=== PATIENT | male | born 1980 | race Caucasian/White ===

== ENCOUNTER 2018-10-25 06:57 | Observation (INO) | payer OTHER ==
[2018-10-25] MEDS ORDERED: Sodium Chloride 0.9% 1,000 ML IV STA ×2 (07:56)
--- NOTE | 2018-10-25 08:10 | ED PDOC ---
Arrival/HPI - General Chief Complaint: GI Problem Time Seen by Provider: 10/25/18 07:40 Historian: Patient - History of Present Illness Narrative History of Present Illness (Text): 10/25/18 08:03 38 year old male, with past medical history of diabetes and hypertension, presents to the Emergency department for evaluation of mild headache, dizziness, vomiting, and diarrhea since 2 days. Patient believes symptoms are secondary to his elevated blood sugar. Patient reports visiting his PMD 2 days ago for elevated blood sugar and was prescribed medication for diabetes. As per patient, headache resolved after taking the medication but returned last night. Patient denies any other associated somatic complaints. Patient denies any fever, chills, abdominal pain, chest pain, shortness of breath, vision changes, focal weakness or any other complaints. Time/Duration: < week Symptom Onset: Gradual Symptom Course: Unchanged Activities at Onset: Light Context: Home Past Medical History - Provider Review Nursing Documentation Reviewed: Yes - Cardiac Hx Cardiac Disorders: Yes Hx Hypertension: Yes - Pulmonary Hx Respiratory Disorders: No - Neurological Hx Neurological Disorder: No - HEENT Hx HEENT Disorder: No - Renal Hx Renal Disorder: No - Endocrine/Metabolic Hx Endocrine Disorders: Yes Hx Diabetes Mellitus Type 2: Yes - Hematological/Oncological Hx Blood Disorders: No - Integumentary Hx Dermatological Disorder: No - Musculoskeletal/Rheumatological Hx Musculoskeletal Disorders: No - Gastrointestinal Hx Gastrointestinal Disorders: No - Genitourinary/Gynecological Hx Genitourinary Disorders: No - Psychiatric Hx Psychophysiologic Disorder: No Hx Substance Use: No - Surgical History Hx Appendectomy: Yes Family/Social History - Physician Review Nursing Documentation Reviewed: Yes Family/Social History: Unknown Family HX Smoking Status: Heavy Smoker > 10 Cigarettes Daily Hx Alcohol Use: Yes Frequency of alcohol use: Socially Hx Substance Use: No Allergies/Home Meds Allergies/Adverse Reactions: Allergies No Known Allergies Allergy (Verified 10/25/18 07:32) Home Medications: Home Meds Medication Instructions Recorded Confirmed Unobtainable 10/25/18 10/25/18 Review of Systems - Physician Review All systems were reviewed & negative as marked: Yes - Review of Systems Constitutional: absent: Fevers Eyes: absent: Vision Changes Respiratory: absent: SOB, Cough Cardiovascular: absent: Chest Pain, GUERRA Gastrointestinal: Diarrhea, Nausea, Vomiting. absent: Abdominal Pain Genitourinary Male: absent: Dysuria, Urinary Output Changes Musculoskeletal: absent: Back Pain, Neck Pain Skin: absent: Rash Neurological: Headache, Dizziness. absent: Focal Weakness, Speech Changes, Facial Droop Endocrine: absent: Diaphoresis Psychiatric: absent: Anxiety Physical Exam - Physical Exam Narrative Physical Exam (Text): 10/25/18 08:12 Gen: VS reviewed, alert, well developed, well nourished, nontoxic, mild distress. ENT: normal pharynx. Dry mucous membranes. Eye: EOMI, PERRL. Neck: no JVD, supple, no adenopathy. CV: tachycardia, regular rhythm, no rubs, no murmur, no gallops, S1, S2, pulses equal and strong. Pulm: no distress, clear to auscultation, no wheeze, no rhonchi, breath sounds equal, no rales. Abd: soft, mild right sided tenderness, no guarding, no rebound, no rigidity, normal bowel sounds. Ext: no edema. Skin: good color, no rash, no cyanosis. Psych: responds appropriately to questions, normal affect. Neuro: oriented x 3, CN2-12 intact grossly, motor intact, sensation intact. Vital Signs Reviewed: Yes Vital Signs Temp Pulse Resp BP Pulse Ox 10/25/18 07:32 98.3 F 106 H 18 152/79 H 96 Temperature: Afebrile Blood Pressure: Normal Pulse: Tachycardic Respiratory Rate: Normal Appearance: Positive for: Well-Appearing, Non-Toxic, Comfortable Pain Distress: Mild Mental Status: Positive for: Alert and Oriented X 3 Finger Stick Blood Glucose: 262 Medical Decision Making ED Course and Treatment: 10/25/18 07:55 Impression: 38 year old male presents to the ED for evaluation of headache, dizziness, nausea, vomiting and diarrhea. Plan: -- EKG -- Labs -- IV Fluids -- Zofran -- Urinalysis -- Reassess and disposition Prior Visits: Notes and results from previous visits were reviewed. Progress Notes: 10/25/18 11:[address] fried, patient to be admitted for dehydration presumably from uncontrolled glycemia and acute vomit/diarrhea. there is no metabolic disturbance to suggest DKA. EKG appears consistent with ischemia and being that the patient is hemoconcentrated (elevated Hb) with risk factors for heart disease will warrant further cardiac evaluation. consult dr. dean. - RAD Interpretation Narrative RAD Interpretations (Text): 10/25/18 09:45 CT of head reviewed by radiologist, shows: FINDINGS: HEMORRHAGE: No intracranial hemorrhage. BRAIN: No mass effect or edema. No atrophy or chronic microvascular ischemic changes. VENTRICLES: Unremarkable. No hydrocephalus. CALVARIUM: Unremarkable. PARANASAL SINUSES: Unremarkable as visualized. No significant inflammatory changes. MASTOID AIR CELLS: Unremarkable as visualized. No inflammatory changes. OTHER FINDINGS: None. IMPRESSION: Normal CT of the Head. No intracranial mass, hemorrhage or evidence of acute infarct. Gauger Chief: Radiologist - EKG Interpretation EKG Interpretation (Text): 10/25/18 08:44 archival studies professor read: Sinus tachycardia at 115 bpm. 10/25/18 07:36 Sinus tachycardia @108bpm, nml QRS, nml axis, non-specific lateral flipped t waves. Interpreted by ED Physician: Yes Type: 12 lead EKG - Medication Orders Current Medication Orders: Sodium Chloride (Sodium Chloride 0.9%) 1,000 mls @ 999 mls/hr IV .Q1H1M STA Stop: 10/25/18 08:56 Sodium Chloride (Sodium Chloride 0.9%) 1,000 mls @ 999 mls/hr IV .Q1H1M STA Stop: 10/25/18 08:56 Discontinued Medications Ondansetron HCl (Zofran Inj) 4 mg IVP STAT STA Stop: 10/25/18 07:57 - Scribe Statement The provider has reviewed the documentation as recorded by the Noéibe Nelia Stiles. All medical record entries made by the Scribe were at my direction and personally dictated by me. I have reviewed the chart and agree that the record accurately reflects my personal performance of the history, physical exam, medical decision making, and the department course for this patient. I have also personally directed, reviewed, and agree with the discharge instructions and disposition. Disposition/Present on Arrival - Present on Arrival Any Indicators Present on Arrival: No History of DVT/PE: No History of Uncontrolled Diabetes: No Urinary Catheter: No History of Decub. Ulcer: No History Surgical Site Infection Following: None - Disposition Have Diagnosis and Disposition been Completed?: Yes Diagnosis: Abnormal EKG, Dehydration Disposition Time: 11:12 Patient Plan: Admission, Observation Patient Problems: Current Active Problems Problem Status Onset Abnormal EKG Acute Dehydration Acute Condition: STABLE
[2018-10-25 08:52] LABS: BASO # 0.02 K/mm3 (0.0-2.0); BASO % 0.2 % (0.0-3.0); EOS % 0.1 % (1.5-5.0); LYMPH % 15.8 % (22.0-35.0); MEAN CELL VOLUME 85.7 fl (80.0-105.0); MEAN CORPUSCULAR HEMOGLOBIN 30.3 pg (25.0-35.0); MEAN CORPUSCULAR HGB CONC 35.4 g/dl (31.0-37.0); MEAN PLATELET VOLUME 9.7 fl (7.0-11.0); MONO # 0.5 (0.1-0.6); MONO % 3.9 % (1.0-6.0); RBC 6.1 10^6/uL (3.5-6.1); RED CELL DISTRIBUTION WIDTH 13.8 % (11.5-14.5); WHITE BLOOD COUNT 12.9 10^3/uL (4.5-11.0)
[2018-10-25 08:55] LABS: ALB/GLOB RATIO 1.1 (1.1-1.8); ALBUMIN 4.3 g/dL (3.0-4.8); ALT/SGPT 41 U/L (7-56); AST/SGOT 44 U/L (17-59); BLOOD UREA NITROGEN 17 mg/dL (7-21); CALCIUM 9.9 mg/dL (8.4-10.5); GFR NON-AFRICAN AMERICAN > 60; LIPASE 111 U/L (23-300)
[2018-10-25 09:01] LABS: HEMOGLOBIN 18.5 g/dL (14.0-18.0)
[2018-10-25 09:12] LABS: URINE BILIRUBIN NEGATIVE (NEGATIVE); URINE BLOOD NEGATIVE (NEGATIVE); URINE GLUCOSE (UA) >=1000 mg/dL (NEGATIVE); URINE LEUKOCYTE ESTERASE NEGATIVE Leu/uL (NEGATIVE); URINE PROTEIN 100 mg/dL (<30 mg/dL); URINE UROBILINOGEN 0.2 E.U./dL (<1 E.U./dL)
[2018-10-25 09:13] LABS: URINE APPEARANCE CLEAR (CLEAR); URINE COLOR YELLOW (YELLOW)
--- NOTE | 2018-10-25 09:15 | CT ---
Date of service: 10/25/2018 PROCEDURE: CT HEAD WITHOUT CONTRAST. HISTORY: headache COMPARISON: None available. TECHNIQUE: Axial computed tomography images were obtained through the head/brain without intravenous contrast. Radiation dose: Total exam DLP = 786.98 mGy-cm. This CT exam was performed using one or more of the following dose reduction techniques: Automated exposure control, adjustment of the mA and/or kV according to patient size, and/or use of iterative reconstruction technique. FINDINGS: HEMORRHAGE: No intracranial hemorrhage. BRAIN: No mass effect or edema. No atrophy or chronic microvascular ischemic changes. VENTRICLES: Unremarkable. No hydrocephalus. CALVARIUM: Unremarkable. PARANASAL SINUSES: Unremarkable as visualized. No significant inflammatory changes. MASTOID AIR CELLS: Unremarkable as visualized. No inflammatory changes. OTHER FINDINGS: None. IMPRESSION: Normal CT of the Head. No intracranial mass, hemorrhage or evidence of acute infarct.
[2018-10-25 09:49] LABS: URINE BACTERIA FEW /hpf; URINE RBC 0 - 2 /hpf (0-2); URINE WBC 0 - 2 /hpf (0-6)
[2018-10-25] MEDS ORDERED: Potassium Chloride 10 mEq ER Tab PO STA (12:08)
[2018-10-25] MEDS: Sodium Chloride 0.9% 1,000 ML IV SCH (12:16)
--- NOTE | 2018-10-25 12:35 | CP.PCM.CON ---
History of Present Illness - History of Present Illness History of Present Illness: Awake, alert, complaining of left side headache Reason for consultation:Cardiac evaluation of abnormal EKG and tachycardia Brief history of present illness: A 38 year old obese male, who came in to the ER due to mild headache, dizziness, vomiting, and diarrhea x 2 days. History of uncontrolled diabetes and hypertension. No cardiac work up. Consult was called due to tachycardia and abnormal EKG. Seen and examined by me and Dr. Albright Review of Systems - Review of Systems All systems: reviewed and no additional remarkable complaints except Review of Systems: as per HPI Past Patient History - Past Social History Smoking Status: Heavy Smoker > 10 Cigarettes Daily - CARDIAC Hx Cardiac Disorders: Yes Hx Hypertension: Yes - PULMONARY Hx Respiratory Disorders: No - NEUROLOGICAL Hx Neurological Disorder: No - HEENT Hx HEENT Problems: No - RENAL Hx Chronic Kidney Disease: No - ENDOCRINE/METABOLIC Hx Endocrine Disorders: Yes Hx Diabetes Mellitus Type 2: Yes - HEMATOLOGICAL/ONCOLOGICAL Hx Blood Disorders: No - INTEGUMENTARY Hx Dermatological Problems: No - MUSCULOSKELETAL/RHEUMATOLOGICAL Hx Musculoskeletal Disorders: No - GASTROINTESTINAL Hx Gastrointestinal Disorders: No - GENITOURINARY/GYNECOLOGICAL Hx Genitourinary Disorders: No - PSYCHIATRIC Hx Psychophysiologic Disorder: No Hx Substance Use: No - SURGICAL HISTORY Hx Appendectomy: Yes Meds Allergies/Adverse Reactions: Allergies Allergy/AdvReac Type Severity Reaction Status Date / Time No Known Allergies Allergy Verified 10/25/18 07:32 - Medications Medications: Current Medications Aspirin (Aspirin Chewable) 81 mg PO DAILY [facility] Atorvastatin Calcium (Lipitor) 40 mg PO DIN [facility] Hydrochlorothiazide (Hydrodiuril) 25 mg PO DAILY [facility] Sodium Chloride (Sodium Chloride 0.9%) 1,000 mls @ 100 mls/hr IV .Q10H [facility] Last Admin: 10/25/18 12:16 Dose: 100 mls/hr Insulin Human Regular (Humulin R Med) 0 units SC ACHS [facility]; Protocol Lisinopril (Zestril) 20 mg PO DAILY [facility] Metformin HCl (Glucophage) 850 mg PO BID [facility] Ondansetron HCl (Zofran Inj) 4 mg IVP Q4H PRN PRN Reason: Nausea/Vomiting Physical Exam - Constitutional Appears: Non-toxic, No Acute Distress - Head Exam Head Exam: NORMAL INSPECTION, NORMOCEPHALIC Additional comments: headache - Eye Exam Eye Exam: Normal appearance Pupil Exam: NORMAL ACCOMODATION - ENT Exam ENT Exam: Mucous Membranes Dry - Neck Exam Neck exam: Positive for: Normal Inspection - Respiratory Exam Respiratory Exam: Clear to Auscultation Bilateral, NORMAL BREATHING PATTERN - Cardiovascular Exam Cardiovascular Exam: Tachycardia, +S1, +S2 - GI/Abdominal Exam GI & Abdominal Exam: Normal Bowel Sounds, Soft - Neurological Exam Neurological exam: Alert, Oriented x3 - Psychiatric Exam Psychiatric exam: Normal Affect, Normal Mood - Skin Skin Exam: Dry, Normal Color, Warm Results - Vital Signs Recent Vital Signs: Last Vital Signs Temp 98.3 F 10/25/18 07:32 Pulse 107 H 10/25/18 10:01 Resp 17 10/25/18 10:01 BP 125/69 10/25/18 10:01 Pulse Ox 94 L 10/25/18 10:01 - Labs Result Diagrams: 10/25/18 07:30 10/25/18 07:30 Labs: Laboratory Results - last 24 hr 10/25/18 10/25/18 10/25/18 07:30 07:30 08:40 WBC 12.9 H RBC 6.10 Hgb 18.5 H* Hct 52.3 H MCV 85.7 MCH 30.3 MCHC 35.4 RDW 13.8 Plt Count 265 MPV 9.7 Neut % (Auto) 80.0 H Lymph % (Auto) 15.8 L [place] % (Auto) 3.9 Eos % (Auto) 0.1 L Baso % (Auto) 0.2 Lymph # (Auto) 2.0 [place] # (Auto) 0.5 Eos # (Auto) 0.0 Baso # (Auto) 0.02 Absolute Neuts (auto) 10.31 H Sodium 135 Potassium 3.4 L Chloride 96 L Carbon Dioxide 22 Anion Gap 21 H BUN 17 Creatinine 0.6 L Est GFR ( Amer) > 60 Est GFR (Non-Af Amer) > 60 Random Glucose 287 H Calcium 9.9 Magnesium 2.0 Total Bilirubin 1.2 AST 44 ALT 41 Alkaline Phosphatase 93 Troponin I Total Protein 8.1 Albumin 4.3 Globulin 3.8 Albumin/Globulin Ratio 1.1 Lipase 111 Urine Color Yellow Urine Appearance Clear Urine pH 6.0 Ur Specific [place] 1.015 Urine Protein 100 H Urine Glucose (UA) >=1000 Urine Ketones >=80 Urine Blood Negative Urine Nitrate Negative Urine Bilirubin Negative Urine Urobilinogen 0.2 Ur Leukocyte Esterase Negative Urine RBC 0 - 2 Urine WBC 0 - 2 Ur Epithelial Cells None Urine Bacteria Few 10/25/18 09:01 WBC RBC Hgb Hct MCV MCH MCHC RDW Plt Count MPV Neut % (Auto) Lymph % (Auto) [place] % (Auto) Eos % (Auto) Baso % (Auto) Lymph # (Auto) [place] # (Auto) Eos # (Auto) Baso # (Auto) Absolute Neuts (auto) Sodium Potassium Chloride Carbon Dioxide Anion Gap BUN Creatinine Est GFR ( Amer) Est GFR (Non-Af Amer) Random Glucose Calcium Magnesium Total Bilirubin AST ALT Alkaline Phosphatase Troponin I < 0.01 Total Protein Albumin Globulin Albumin/Globulin Ratio Lipase Urine Color Urine Appearance Urine pH Ur Specific [place] Urine Protein Urine Glucose (UA) Urine Ketones Urine Blood Urine Nitrate Urine Bilirubin Urine Urobilinogen Ur Leukocyte Esterase Urine RBC Urine WBC Ur Epithelial Cells Urine Bacteria Assessment & Plan - Assessment and Plan (Free Text) Assessment: A 38 year old obese male, who came in to the ER due to mild headache, dizziness, vomiting, and diarrhea x 2 days. Patient is fasting and attribute headache from elevated blood glucose. Fasting glucose was above 200 when checked at home. History of uncontrolled diabetes, hyperlipidemia and hypertension and current smoker. No cardiac work up. Consult was called due to tachycardia and abnormal EKG. EKG read by Dr. Albright and showed tachycardia possible left atrial enlargement. T inversion leads 1,2,3,4 and V leads. Q wave in III and AVF non significant. Patient denies chest pain. CT of head done- unremarkable, no hemorrhage. Will order echo to evaluate LV function. Out patient Stress test for risk stratification. Headache maybe from dehydration as he is fasting. IV fluids for hydration. Control glucose. No plan for invasive procedure at this time. Orthostatic vital signs. Low dose betablocker. Plan: Denies chest pain, Complaints of head ache left side of head IV fluids for hydration Echo to evaluate LV function On ASA 81 mg daily,Lipitor 40 mg daily,Hydrodiuril 25 mg daily, Lisinopril 20 mg daily Low dose Lopressor 25 mg BID Orthostatic vital signs Continue current treatment Continue current medications Lifestyle modifications Weight reduction TSH, HgbA1C, Lipid panel Further recommendation during hospital course Will follow up Plan and treatment discussed with Dr. Albright Thank you for the opportunity of taking care of Mena Daniels - Date & Time Date: 10/25/18 Time: 12:45
--- NOTE | 2018-10-25 12:43 | CARD ---
APPROVED REPORT Date of service: 10/25/2018 EKG Measurement Heart [id number] NH [id number] [id number] <Conclusion> Sinus tachycardia Possible Left atrial enlargement T inversions in I,2,3,AVF,V4,V5,V6. Q in III can be Normal.Small Q in AVF Non Significant.
[2018-10-25 12:57] VITALS: BMI 31.7
[2018-10-25] MEDS ORDERED: Potassium Chloride 20 mEq ER Tab PO ONE (14:09)
--- NOTE | 2018-10-25 16:49 | CARD ---
APPROVED REPORT Date of service: 10/25/2018 EXAM: Two-dimensional and M-mode echocardiogram with Doppler and color Doppler. INDICATION LVFX 2D DIMENSIONS Left Atrium (2D)4.0 (1.6-4.0cm)IVSd1.0 (0.7-1.1cm) LVDd4.9 (3.9-5.9cm)PWd1.1 (0.7-1.1cm) LVDs3.4 (2.5-4.0cm)FS (%) 31.2 % LVEF (%)58.7 (>50%) M-Mode DIMENSIONS Aortic Root3.50 (2.2-3.7cm)Aortic Cusp Exc.2.30 (1.5-2.0cm) Aortic Valve AoV Peak Nhqvxqzx793.0cm/Elizabeth Peak GR.7mmHg Mitral Valve MV E Uivezvpe43.3cm/sMV A Paroscvi84.4cm/sE/A ratio1.2 TDI Lateral E' Peak V12.20cm/sMedial E' Peak V9.64cm/sE/Lateral E'7.9 E/Medial E'10.0 Pulmonary Valve PV Peak Amlwsohp29.3cm/sPV Peak Grad.3mmHg Tricuspid Valve TR Peak [id number]/sRAP [id number] Peak Gr.13mmHg [id number] LEFT VENTRICLE The left ventricle is normal size. The left ventricular function is normal. The left ventricular ejection fraction is within the normal range.Ej.Fr: 59%. RIGHT VENTRICLE The right ventricle is normal size. The right ventricular systolic function is normal. ATRIA Size Upper Limit of Normal. The right atrium size is normal. AORTIC VALVE The aortic valve is normal in structure. MITRAL VALVE The mitral valve is normal in structure. Mitral regurgitation is trace. TRICUSPID VALVE The tricuspid valve is normal in structure. There is trace tricuspid regurgitation. PERICARDIAL EFFUSION There is no pericardial effusion. <Conclusion> The left ventricle is normal size.LV Systolic Function Normal. LV Ej.Fr: 59%. The right ventricle is normal size. The right ventricular systolic function is normal. Lt. Atrial Size Upper Limit of Normal. The right atrium size is normal. The aortic valve is normal in structure. The mitral valve is normal in structure. Mitral regurgitation is trace. Tricuspid Valve Normal. Trace Tricuspid Regurge. There is no pericardial effusion.
[2018-10-25] MEDS: Insulin Reg-MEDIUM-Coverage SC SCH ×2 (17:33→21:40)
--- NOTE | 2018-10-25 22:17 | HP ---
HISTORY OF PRESENT ILLNESS: The patient is a 38-year-old man with a past medical history of type 2 diabetes mellitus and hypertension who presented for evaluation of a 2 day history of lightheadedness, dizziness, malaise and headache. The patient was seen in his PMD's office approximately 3 weeks ago for a routine physical. At that point in time, blood work demonstrated a hemoglobin A1c of 8.7. The patient initially opted for lifestyle modifications and denied any symptoms of diabetes. Over the next several weeks he reported that he was not compliant with an ADA diet and had been drinking a lot of soda. He subsequently developed polydipsia, polyuria and polyphagia in addition to the aforementioned symptoms. He returned to his PMD's office on 10/24/2018 and was started on Metformin 850 mg p.o. b.i.d. He was again counseled on the need for lifestyle modifications. He reports some improvement in his symptoms since starting Metformin but due to the fact that his symptoms did not fully resolve, he opted for ED evaluation. In the ED he was afebrile and hemodynamically stable, albeit mildly lightheaded. An EKG demonstrated T-wave inversions in the lateral leads and inferior leads and thus he was admitted for further evaluation. PAST MEDICAL HISTORY: As per HPI, also hyperlipidemia and obesity. PAST SURGICAL HISTORY: Appendectomy. ALLERGIES: NKDA. MEDICATIONS: Simvastatin 20 mg p.o. daily, Zestoretic 20/25 mg p.o. daily and Metformin 850 mg p.o. b.i.d. FAMILY HISTORY: Noncontributory. SOCIAL HISTORY: The patient reports an active [id number] smoking history and social alcohol use. He denies illicit drug abuse. REVIEW OF SYSTEMS: A 12-point review of systems is negative except as per HPI. PHYSICAL EXAMINATION: VITAL SIGNS: Temperature 99.1, pulse 112, blood pressure 146/80, respiratory rate 20, and oxygen saturation 96% on room air. GENERAL: Obese man lying in bed, in no apparent distress. HEENT: PERRL. EOMI. No scleral icterus. No conjunctival pallor. NECK: No JVD. No bruits. LUNGS: Clear to auscultation. CARDIOVASCULAR: Tachycardic. Normal S1 and S2. No murmurs. ABDOMEN: Normoactive bowel sounds, soft, nontender, and nondistended. EXTREMITIES: No edema. NEUROLOGIC: Awake, alert, and oriented x 3. No focal motor deficits. LABORATORY DATA: WBC 12.9 with 80% neutrophils, hemoglobin 18.5, hematocrit 52 and platelets 265. Sodium 135, potassium 3.4, chloride 96, bicarb 22, BUN 17, creatinine 0.6 and glucose 287. Troponin < 0.01. IMAGING STUDIES: 1. CT of the head without contrast demonstrated no acute pathology. ASSESSMENT: The patient is a 38-year-old man with a past medical history of hypertension, hyperlipidemia and noninsulin-dependent diabetes mellitus who presented for an evaluation of a 2 day history of polydipsia, polyphagia, polyuria and malaise and who was admitted for cardiac evaluation due to an abnormal EKG. PLAN: 1. Abnormal EKG. The patient remains chest pain free and has a negative initial troponin. Input from Dr. Albright noted and appreciated and an echocardiogram is ordered to assess LV function. Continue with telemetry monitoring. Cycle cardiac enzymes q. 8 hours for 3 sets. 2. Type 2 diabetes mellitus, uncontrolled, with most recent A1c of 8.7. The patient has been again counseled on the need for lifestyle modifications. Continue Metformin 850 mg p.o. b.i.d. and medium-dose insulin sliding scale for coverage. Continue to monitor fingersticks q.a.c. and at bedtime. 3. Hypertension. Continue Lisinopril 20 mg p.o. daily, hydrochlorothiazide 25 mg p.o. daily and Metoprolol 25 mg p.o. b.i.d. 4. Hyperlipidemia. Continue Lipitor 20 mg p.o. daily. 5. Obesity. The patient has been counseled on lifestyle modifications. 6. Prophylaxis. GI prophylaxis not indicated as the patient is eating. DVT prophylaxis not indicated as the patient is ambulatory. CODE STATUS: Full code. Jose A Rodriguez MD MTDD
[2018-10-25 23:47] VITALS: O2SAT 97
[2018-10-26 05:49] VITALS: TEMP 98.5
--- NOTE | 2018-10-26 05:50 | CP.PCM.PN ---
Subjective - Date & Time of Evaluation Date of Evaluation: 10/26/18 Time of Evaluation: 06:00 - Subjective Subjective: Awake, alert, denies headache, Reason for consultation and follow up: Cardiac evaluation of abnormal EKG and tachycardia, History of uncontrolled diabetes and hypertension, hyperlipidemia, current smoker Seen and examined by me and Dr. Albright Objective - Vital Signs/Intake and Output Vital Signs (last 24 hours): Temp Pulse Resp BP Pulse Ox 98.5 F 94 H 98 H 125/78 97 10/26/18 05:48 10/26/18 05:48 10/26/18 05:48 10/25/18 23:38 10/25/18 23:38 - Medications Medications: Current Medications Acetaminophen (Tylenol 325mg Tab) 650 mg PO Q6H PRN PRN Reason: Headache Last Admin: 10/25/18 13:16 Dose: 650 mg Aspirin (Aspirin Chewable) 81 mg PO DAILY [facility] Atorvastatin Calcium (Lipitor) 40 mg PO DIN [facility] Hydrochlorothiazide (Hydrodiuril) 25 mg PO DAILY [facility] Sodium Chloride (Sodium Chloride 0.9%) 1,000 mls @ 100 mls/hr IV .Q10H [facility] Last Admin: 10/25/18 12:16 Dose: 100 mls/hr Insulin Human Regular (Humulin R Med) 0 units SC [facility]; Protocol Last Admin: 10/25/18 21:40 Dose: Not Given Lisinopril (Zestril) 20 mg PO DAILY [facility] Metformin HCl (Glucophage) 850 mg PO BID [facility] Last Admin: 10/25/18 17:33 Dose: 850 mg Metoprolol Tartrate (Lopressor) 25 mg PO BID [facility] Last Admin: 10/25/18 17:33 Dose: 25 mg Ondansetron HCl (Zofran Inj) 4 mg IVP Q4H PRN PRN Reason: Nausea/Vomiting - Labs Labs: 10/25/18 07:30 10/25/18 07:30 - Constitutional Appears: Non-toxic, No Acute Distress - Head Exam Head Exam: NORMAL INSPECTION, NORMOCEPHALIC - Eye Exam Eye Exam: Normal appearance Pupil Exam: NORMAL ACCOMODATION - ENT Exam ENT Exam: Mucous Membranes Moist, Normal Exam - Respiratory Exam Respiratory Exam: Clear to Ausculation Bilateral, NORMAL BREATHING PATTERN - Cardiovascular Exam Cardiovascular Exam: REGULAR RHYTHM, +S1, +S2 - GI/Abdominal Exam GI & Abdominal Exam: Soft, Normal Bowel Sounds - Extremities Exam Extremities Exam: Full ROM, Normal Capillary Refill - Neurological Exam Neurological Exam: Alert, Awake, Oriented x3 - Psychiatric Exam Psychiatric exam: Normal Affect, Normal Mood - Skin Skin Exam: Dry, Normal Color, Warm Assessment and Plan - Assessment and Plan (Free Text) Assessment: A 38 year old obese male, who came in to the ER due to mild headache, dizziness, vomiting, and diarrhea x 2 days. Patient is fasting and attribute headache from elevated blood glucose. Fasting glucose was above 200 when checked at home. History of uncontrolled diabetes, hyperlipidemia and hypertension and current smoker. No cardiac work up. Consult was called due to tachycardia and abnormal EKG. EKG read by Dr. Albright and showed tachycardia possible left atrial enlargement. T inversion leads 1,2,3,4 and V leads. Q wave in III and AVF non significant. Patient denies chest pain. CT of head done- unremarkable, no hemorrhage. Out patient Stress test for risk stratification. Echo done and showed LVEF 59%, left atrial size upper limit of normal, trace mitral and tricuspid regurgitation, RVSP 23mmHg. Head ache resolved. No plan for invasive procedure at this time. Cardiac status stable. Plan: Headache resolved, feels better Denies chest pain, IV fluids for hydration Heart rate and blood pressure controlled Echo done and showed LVEF 59%, left atrial size upper limit of normal, trace mitral and tricuspid regurgitation, RVSP 23mmHg. On ASA 81 mg daily,Lipitor 40 mg daily,Hydrodiuril 25 mg daily, Lisinopril 20 mg daily,Lopressor 25 mg BID Orthostatic vital signs Continue current treatment Continue current medications Lifestyle modifications Weight reduction Will discontinue telemetry Out patient Stress test Will follow up Plan and treatment discussed with Dr. Albright
[2018-10-26 05:56] VITALS: RESP 20
[2018-10-26] MEDS: Sodium Chloride 0.9% 1,000 ML IV SCH (06:19)
[2018-10-26 06:58] LABS: MEAN CELL VOLUME 87.1 fl (80.0-105.0); MEAN CORPUSCULAR HEMOGLOBIN 29.4 pg (25.0-35.0); MEAN CORPUSCULAR HGB CONC 33.7 g/dl (31.0-37.0); MEAN PLATELET VOLUME 9.3 fl (7.0-11.0); RBC 5.11 10^6/uL (3.5-6.1); RED CELL DISTRIBUTION WIDTH 13.7 % (11.5-14.5); WHITE BLOOD COUNT 7.9 10^3/uL (4.5-11.0)
[2018-10-26 07:03] LABS: ALB/GLOB RATIO 1.2 (1.1-1.8); ALBUMIN 3.4 g/dL (3.0-4.8); ALT/SGPT 34 U/L (7-56); AST/SGOT 27 U/L (17-59); BLOOD UREA NITROGEN 15 mg/dL (7-21); CALCIUM 8.4 mg/dL (8.4-10.5); GFR NON-AFRICAN AMERICAN > 60; HDL CHOLESTEROL 29 mg/dL (29-60)
[2018-10-26 07:13] LABS: LDL CHOLESTEROL 71 mg/dL (0-129)
[2018-10-26] MEDS: Insulin Reg-MEDIUM-Coverage SC SCH (07:53)
[2018-10-26 10:44] VITALS: BP 151/95; PULSE 80
--- NOTE | 2018-10-26 12:03 | DS ---
LOCATION: The patient in room 260, bed 1. HISTORY OF PRESENT ILLNESS: The patient is sleeping comfortably, has no complaints and there have been no acute events overnight. PHYSICAL EXAMINATION: VITAL SIGNS: Temperature of 98.5, pulse rate of 94, blood pressure 118/69, respiratory rate of 20 with an O2 saturation of 97% on room air. HEENT: Unremarkable. NECK: Supple with a full range of motion. LUNGS: Clear to auscultation and percussion bilaterally. HEART: Shows a regular rate and rhythm. ABDOMEN: Soft. It is nontender. There is no organomegaly. Bowel sounds are normoactive. NEUROLOGICALLY: There are no focal motor deficits. LABORATORY DATA: CBC, WBC of 7.9, hemoglobin and hematocrit of 15.0 and 44.5. Chemistry with the exception of a random glucose of 171, triglyceride of 880 and a cholesterol of 290, it is entirely unremarkable. CURRENT DIAGNOSES: 1. Abnormal EKG. 2. Dehydration. 3. Diabetes mellitus. PLAN: The patient will be discharged today and followed up for an outpatient stress test by Dr. Albright. He will continue on current medications. Nadir Rodriguez MD
== END 2018-10-26 11:53 | disposition home or self-care (01) ==
LOC: ED 06:57 → ERH 11:13 → 2RNO 12:23
PROVIDERS: ADMIT Student in an Organized Health Care Education/Training Program; ATTEND Student in an Organized Health Care Education/Training Program
DX: E86.0 Dehydration (principal); E11.65 Type 2 diabetes mellitus with hyperglycemia; I10 Essential (primary) hypertension; E78.5 Hyperlipidemia, unspecified; F17.210 Nicotine dependence, cigarettes, uncomplicated; R00.0 Tachycardia, unspecified; E66.9 Obesity, unspecified; Z68.31 Body mass index [BMI] 31.0-31.9, adult; Z79.84 Long term (current) use of oral hypoglycemic drugs
CPT/HCPCS: 36415; 70450; 80053; 80061; 81001; 82948; 83036; 83690; 83735; 84443; 84484; 85025; 85027; 93005; 93306; 94770; 96361; 96374; 99283; G0378; J2405; J7030